=== PATIENT | male | born 1935 | race Caucasian/White ===

== ENCOUNTER 2017-05-26 13:58 | Inpatient (IN) | payer MEDICARE, BC ==
[~2017-05-26] VITALS: Ht 167.6 cm; Wt 94.1 kg
[2017-05-26] MEDS ORDERED: SODIUM CHLORIDE FLUSH 10ML SYR IVF ONE (15:00)
[2017-05-26 15:13] LABS: BASOPHILS # (AUTO) 0.02 x10^3/uL (0-0.1); BASOPHILS % (AUTO) 0 % (0-1); EOSINOPHILS # (AUTO) 0.01 x10^3/uL (0-0.4); EOSINOPHILS % (AUTO) 0 % (1-7); LYMPHOCYTES # (AUTO) 1.35 x10^3/uL (1-3.4); LYMPHOCYTES % (AUTO) 13 % (22-44); MD NO; MEAN CORPUSCULAR HEMOGLOBIN 27.8 pg (27.5-34.5); MEAN CORPUSCULAR HGB CONC 32.5 g/dL (33.2-36.2); MEAN CORPUSCULAR VOLUME 85.7 fL (81-97); MEAN PLATELET VOLUME 7.3 fL (7.4-10.4); MONOCYTES # (AUTO) 0.14 x10^3/uL (0.2-0.8); MONOCYTES % (AUTO) 1 % (2-9); NEUTROPHILS # (AUTO) 8.78 x10^3/uL (1.8-6.8); NEUTROPHILS % (AUTO) 85 % (42-75); PLATELET COUNT 234 x10^3/uL (130-400); RED BLOOD COUNT 4.66 x10^6/uL (4.38-5.82)
[2017-05-26 15:24] LABS: ALANINE AMINOTRANSFERASE 16 U/L (12-78); ALBUMIN 2.9 g/dL (3.4-5.0); ANION GAP 8 mmol/L (5-15); CALCIUM 8.5 mg/dL (8.5-10.1); CHLORIDE 100 mmol/L (98-107); CREATININE 1.83 mg/dL (0.7-1.3)
[2017-05-26 15:27] LABS: RAPID INFLUENZA A POSITIVE (Negative); RAPID INFLUENZA B Negative (Negative)
[2017-05-26 15:28] LABS: ALKALINE PHOSPHATASE 69 U/L (45-117); BILIRUBIN,TOTAL 0.5 mg/dL (0.2-1.0); TROPONIN I 0.031 ng/mL (0.000-0.045)
[2017-05-26] MEDS ORDERED: SODIUM CHLORIDE FLUSH 10ML SYR IVF PRN (21:30)
[2017-05-26] MEDS ORDERED: WARF5TAB7 PO (22:34)
[2017-05-26] MEDS ORDERED: FURO-93 PO (22:35)
[2017-05-26] MEDS ORDERED: METO50TA4 PO (22:36)
[2017-05-26] MEDS ORDERED: ATOR20TA9 PO (22:37)
[2017-05-26] MEDS ORDERED: LOSA25TA5 PO (22:37)
[2017-05-26] MEDS ORDERED: ALLO100T30 PO (22:38)
[2017-05-26] MEDS ORDERED: ASPI-496 PO (22:38)
[2017-05-26] MEDS ORDERED: ONDANSETRON 2MG/ML, 2ML IVPush PRN (23:00)
[2017-05-26] MEDS ORDERED: TEMAZEPAM 15 MG CAPSULE PO PRN (23:00)
[2017-05-26] MEDS ORDERED: ACETAMINOPHEN 325 MG TABLET PO PRN (23:00)
[2017-05-27] MEDS ORDERED: ALBUTEROL SULFATE 2.5 MG/3 ML NPPB PRN
[2017-05-27 00:55] VITALS: BP 110/62
[2017-05-27 04:23] LABS: BASOPHILS # (AUTO) 0.03 x10^3/uL (0-0.1); BASOPHILS % (AUTO) 0 % (0-1); EOSINOPHILS # (AUTO) 0.02 x10^3/uL (0-0.4); EOSINOPHILS % (AUTO) 0 % (1-7); LYMPHOCYTES # (AUTO) 2.41 x10^3/uL (1-3.4); LYMPHOCYTES % (AUTO) 24 % (22-44); MD NO; MEAN CORPUSCULAR HEMOGLOBIN 27.3 pg (27.5-34.5); MEAN CORPUSCULAR HGB CONC 32.1 g/dL (33.2-36.2); MEAN CORPUSCULAR VOLUME 85.3 fL (81-97); MEAN PLATELET VOLUME 6.9 fL (7.4-10.4); MONOCYTES # (AUTO) 0.64 x10^3/uL (0.2-0.8); MONOCYTES % (AUTO) 7 % (2-9); NEUTROPHILS # (AUTO) 6.82 x10^3/uL (1.8-6.8); NEUTROPHILS % (AUTO) 69 % (42-75); PLATELET COUNT 215 x10^3/uL (130-400); RED BLOOD COUNT 4.15 x10^6/uL (4.38-5.82); RED CELL DISTRIBUTION WIDTH 18.1 % (9.4-14.8)
[2017-05-27 04:30] LABS: INTERNATIONAL NORMALIZED RATIO 2.08 (0.93-1.1); PROTHROMBIN TIME 21.3 Seconds (9.6-11.5)
[2017-05-27 04:34] LABS: ANION GAP 6 mmol/L (5-15); CALCIUM 8.4 mg/dL (8.5-10.1); CHLORIDE 100 mmol/L (98-107)
[2017-05-27] MEDS: SODIUM CHLORIDE 0.9% 1,000 ML IV SCH ×3 (06:35→23:04)
[2017-05-27 07:05] VITALS: BP 128/70
[2017-05-27] MEDS: ALLOPURINOL 100 MG TABLET PO SCH (09:01)
[2017-05-27] MEDS: METOPROLOL SUCCINATE 50 MG TAB.ER.24H PO SCH (09:01)
[2017-05-27] MEDS: ASPIRIN 81 MG TABLET EC PO SCH (09:01)
[2017-05-27 13:15] VITALS: BP 127/69
[2017-05-27] MEDS: WARFARIN 5 MG TABLET PO-COUM SCH (18:15)
[2017-05-27 21:59] VITALS: BP 120/60
[2017-05-28 05:04] VITALS: BP 133/69
[2017-05-28] MEDS: SODIUM CHLORIDE 0.9% 1,000 ML IV SCH ×2 (06:00→18:00)
[2017-05-28 07:36] VITALS: BP 124/67
[2017-05-28] MEDS: METOPROLOL SUCCINATE 50 MG TAB.ER.24H PO SCH (09:03)
[2017-05-28] MEDS: ASPIRIN 81 MG TABLET EC PO SCH (09:03)
[2017-05-28] MEDS: ALLOPURINOL 100 MG TABLET PO SCH (09:03)
[2017-05-28 13:44] VITALS: BP 130/54
[2017-05-28 17:23] LABS: CLOSTRIDIUM DIFFICILE ANTIGEN NEGATIVE; CLOSTRIDIUM DIFFICILE TOXIN NEGATIVE (Negative)
[2017-05-28] MEDS: WARFARIN 5 MG TABLET PO-COUM SCH (17:39)
[2017-05-28 21:26] VITALS: BP 154/66
[2017-05-29] MEDS: SODIUM CHLORIDE 0.9% 1,000 ML IV SCH ×2 (02:00→09:29)
[2017-05-29 02:02] VITALS: BP 169/71
[2017-05-29] MEDS: GUAIFENESIN/DM 200-20MG, 10ML UDC PO PRN (05:43)
[2017-05-29 07:06] VITALS: BP 148/76
[2017-05-29] MEDS: ALLOPURINOL 100 MG TABLET PO SCH (09:29)
[2017-05-29] MEDS: METOPROLOL SUCCINATE 50 MG TAB.ER.24H PO SCH (09:29)
[2017-05-29] MEDS: ASPIRIN 81 MG TABLET EC PO SCH (09:29)
[2017-05-29] MEDS ORDERED: FUROSEMIDE 20 MG/2 ML IV ONE (10:30)
[2017-05-29 10:54] LABS: MEAN CORPUSCULAR HEMOGLOBIN 27.6 pg (27.5-34.5); MEAN CORPUSCULAR HGB CONC 32.1 g/dL (33.2-36.2); MEAN CORPUSCULAR VOLUME 85.8 fL (81-97); MEAN PLATELET VOLUME 6.9 fL (7.4-10.4); PLATELET COUNT 200 x10^3/uL (130-400); RED BLOOD COUNT 4.09 x10^6/uL (4.38-5.82); RED CELL DISTRIBUTION WIDTH 17.8 % (9.4-14.8)
[2017-05-29 10:58] LABS: INTERNATIONAL NORMALIZED RATIO 3.08 (0.93-1.1); PROTHROMBIN TIME 31.3 Seconds (9.6-11.5)
[2017-05-29 11:02] LABS: ANION GAP 5 mmol/L (5-15); CHLORIDE 110 mmol/L (98-107); CREATININE 1.16 mg/dL (0.7-1.3)
[2017-05-29 11:24] VITALS: BP 134/63
[2017-05-29] MEDS: LOSARTAN 25MG TABLET PO SCH (11:27)
[2017-05-29 12:57] VITALS: BP 151/75
[2017-05-29 13:03] LABS: BASOPHILS # (AUTO) 0.01 x10^3/uL (0-0.1); BASOPHILS % (AUTO) 0 % (0-1); EOSINOPHILS # (AUTO) 0.01 x10^3/uL (0-0.4); EOSINOPHILS % (AUTO) 0 % (1-7); LYMPHOCYTES # (AUTO) 2.35 x10^3/uL (1-3.4); LYMPHOCYTES % (AUTO) 23 % (22-44); MD SCAN; MONOCYTES % (AUTO) 5 % (2-9); NEUTROPHILS # (AUTO) 7.32 x10^3/uL (1.8-6.8); NEUTROPHILS % (AUTO) 72 % (42-75)
[2017-05-29] MEDS ORDERED: WARFARIN 2.5 MG TABLET PO-COUM SCH (18:00)
[2017-05-29 19:18] VITALS: BP 157/64
[2017-05-29] MEDS: GUAIFENESIN ER 600 MG TABLET PO SCH (20:12)
[2017-05-29] MEDS: FUROSEMIDE 20 MG TABLET PO SCH (20:12)
[2017-05-29] MEDS: GUAIFENESIN/COD200MG-20MG/10ML LIQUID PO SCH (20:13)
[2017-05-29] MEDS: ATORVASTATIN 20 MG TABLET PO SCH (20:13)
[2017-05-30 02:59] VITALS: BP 180/63
[2017-05-30 03:01] VITALS: BP 171/73
[2017-05-30 03:11] VITALS: BP 160/61
[2017-05-30 05:02] LABS: INTERNATIONAL NORMALIZED RATIO 3.43 (0.93-1.1); PROTHROMBIN TIME 34.8 Seconds (9.6-11.5)
[2017-05-30 05:04] LABS: BASOPHILS # (AUTO) 0.01 x10^3/uL (0-0.1); BASOPHILS % (AUTO) 0 % (0-1); EOSINOPHILS # (AUTO) 0.01 x10^3/uL (0-0.4); EOSINOPHILS % (AUTO) 0 % (1-7); LYMPHOCYTES % (AUTO) 19 % (22-44); MD NO; MEAN CORPUSCULAR HEMOGLOBIN 27.1 pg (27.5-34.5); MEAN CORPUSCULAR HGB CONC 31.5 g/dL (33.2-36.2); MEAN CORPUSCULAR VOLUME 85.9 fL (81-97); MEAN PLATELET VOLUME 7.9 fL (7.4-10.4); MONOCYTES # (AUTO) 0.51 x10^3/uL (0.2-0.8); MONOCYTES % (AUTO) 7 % (2-9); NEUTROPHILS # (AUTO) 5.61 x10^3/uL (1.8-6.8); NEUTROPHILS % (AUTO) 75 % (42-75); PLATELET COUNT 196 x10^3/uL (130-400); RED BLOOD COUNT 3.96 x10^6/uL (4.38-5.82); RED CELL DISTRIBUTION WIDTH 17.9 % (9.4-14.8)
[2017-05-30 05:09] LABS: ANION GAP 6 mmol/L (5-15); CALCIUM 7.9 mg/dL (8.5-10.1); CHLORIDE 110 mmol/L (98-107)
[2017-05-30 07:00] VITALS: BP 152/65
[2017-05-30] MEDS: ALLOPURINOL 100 MG TABLET PO SCH (08:28)
[2017-05-30] MEDS: METOPROLOL SUCCINATE 50 MG TAB.ER.24H PO SCH (08:28)
[2017-05-30] MEDS: FUROSEMIDE 20 MG TABLET PO SCH (08:29)
[2017-05-30] MEDS: GUAIFENESIN ER 600 MG TABLET PO SCH ×2 (08:29→21:07)
[2017-05-30] MEDS: ASPIRIN 81 MG TABLET EC PO SCH (08:29)
[2017-05-30] MEDS: LOSARTAN 25MG TABLET PO SCH ×2 (08:34→21:08)
[2017-05-30 12:47] VITALS: BP 162/73
[2017-05-30] MEDS ORDERED: hydrALAzine 20 MG/ML, 1ML IV PRN (15:30)
[2017-05-30] MEDS ORDERED: FUROSEMIDE 20 MG/2 ML IV ONE (15:30)
[2017-05-30] MEDS ORDERED: WARFARIN 1 MG TABLET PO-COUM SCH (18:00)
[2017-05-30] MEDS: ATORVASTATIN 20 MG TABLET PO SCH (21:06)
[2017-05-30] MEDS: GUAIFENESIN/COD200MG-20MG/10ML LIQUID PO SCH (21:08)
[2017-05-30] MEDS: GUAIFENESIN/DM 200-20MG, 10ML UDC PO PRN (21:08)
[2017-05-30 21:14] VITALS: BP 148/86
[2017-05-31 03:28] VITALS: BP 180/61
[2017-05-31 03:29] VITALS: BP 183/76
[2017-05-31 03:43] VITALS: BP 164/89
[2017-05-31 04:50] LABS: ANION GAP 5 mmol/L (5-15); CALCIUM 7.9 mg/dL (8.5-10.1); CHLORIDE 108 mmol/L (98-107)
[2017-05-31 04:51] LABS: CREATININE 1.09 mg/dL (0.7-1.3)
[2017-05-31 05:03] LABS: INTERNATIONAL NORMALIZED RATIO 5.32 (0.93-1.1); PROTHROMBIN TIME 53.5 Seconds (9.6-11.5)
[2017-05-31 08:00] VITALS: BP 151/69
[2017-05-31] MEDS: FUROSEMIDE 20 MG TABLET PO SCH ×2 (08:13→19:14)
[2017-05-31] MEDS: GUAIFENESIN ER 600 MG TABLET PO SCH ×2 (08:13→22:15)
[2017-05-31] MEDS: ALLOPURINOL 100 MG TABLET PO SCH (08:13)
[2017-05-31] MEDS: METOPROLOL SUCCINATE 50 MG TAB.ER.24H PO SCH (08:13)
[2017-05-31] MEDS: LOSARTAN 25MG TABLET PO SCH ×2 (08:13→22:15)
[2017-05-31] MEDS: ASPIRIN 81 MG TABLET EC PO SCH (08:13)
[2017-05-31 13:51] VITALS: BP 127/60
[2017-05-31 18:30] VITALS: BP 154/74
[2017-05-31] MEDS: ATORVASTATIN 20 MG TABLET PO SCH (22:15)
[2017-05-31] MEDS: GUAIFENESIN/COD200MG-20MG/10ML LIQUID PO SCH (22:15)
[2017-06-01 01:41] VITALS: BP 161/65
[2017-06-01 04:58] LABS: INTERNATIONAL NORMALIZED RATIO 3.58 (0.93-1.1); PROTHROMBIN TIME 36.3 Seconds (9.6-11.5)
[2017-06-01 07:00] VITALS: BP 169/66
[2017-06-01] MEDS: ASPIRIN 81 MG TABLET EC PO SCH (08:12)
[2017-06-01] MEDS: ALLOPURINOL 100 MG TABLET PO SCH (08:12)
[2017-06-01] MEDS: LOSARTAN 25MG TABLET PO SCH ×2 (08:12→20:20)
[2017-06-01] MEDS: METOPROLOL SUCCINATE 50 MG TAB.ER.24H PO SCH (08:12)
[2017-06-01] MEDS: GUAIFENESIN ER 600 MG TABLET PO SCH ×2 (08:12→20:20)
[2017-06-01] MEDS: FUROSEMIDE 20 MG TABLET PO SCH ×2 (08:12→17:27)
[2017-06-01 13:03] VITALS: BP 154/76
[2017-06-01] MEDS ORDERED: WARFARIN 1 MG TABLET PO-COUM ONE (18:00)
[2017-06-01 20:16] VITALS: BP 144/58
[2017-06-01] MEDS: ATORVASTATIN 20 MG TABLET PO SCH (20:20)
[2017-06-01] MEDS: GUAIFENESIN/COD200MG-20MG/10ML LIQUID PO SCH (20:20)
[2017-06-02 02:32] VITALS: BP 153/66
[2017-06-02 04:52] LABS: INTERNATIONAL NORMALIZED RATIO 3.26 (0.93-1.1); PROTHROMBIN TIME 33.1 Seconds (9.6-11.5)
[2017-06-02 07:43] VITALS: BP 158/66
[2017-06-02] MEDS: GUAIFENESIN ER 600 MG TABLET PO SCH (10:09)
[2017-06-02] MEDS: ALLOPURINOL 100 MG TABLET PO SCH (10:09)
[2017-06-02] MEDS: ASPIRIN 81 MG TABLET EC PO SCH (10:09)
[2017-06-02] MEDS: METOPROLOL SUCCINATE 50 MG TAB.ER.24H PO SCH (10:09)
[2017-06-02] MEDS: LOSARTAN 25MG TABLET PO SCH (10:10)
[2017-06-02] MEDS: FUROSEMIDE 20 MG TABLET PO SCH (10:10)
[2017-06-02] MEDS ORDERED: LOSA25TA2 PO (12:30)
[2017-06-02] MEDS ORDERED: PRED5TAB PO (12:30)
[2017-06-02 13:07] VITALS: BP 150/72
[2017-06-02] MEDS ORDERED: WARFARIN 1 MG TABLET PO-COUM ONE (18:00)
== END 2017-06-02 14:00 | disposition home or self-care (01) | DRG 682 ==
LOC: ED 18:20 → EDIP 21:04 → 3NW 05-27
PROVIDERS: ADMIT Internal Medicine; ATTEND Internal Medicine
PROC: 5A09557 Assistance with Respiratory Ventilation, Greater than 96 Consecutive Hours, Continuous Positive Airway Pressure (ICD-10-PCS; principal; 2017-05-28)
PROC: 5A09557 Assistance with Respiratory Ventilation, Greater than 96 Consecutive Hours, Continuous Positive Airway Pressure (ICD-10-PCS; 2017-05-29)
PROC: 5A09557 Assistance with Respiratory Ventilation, Greater than 96 Consecutive Hours, Continuous Positive Airway Pressure (ICD-10-PCS; 2017-06-01)
DX: N17.0 Acute kidney failure with tubular necrosis (principal); J96.21 Acute and chronic respiratory failure with hypoxia; E44.0 Moderate protein-calorie malnutrition; I50.33 Acute on chronic diastolic (congestive) heart failure; I50.43 Acute on chronic combined systolic (congestive) and diastolic (congestive) heart failure; J44.1 Chronic obstructive pulmonary disease with (acute) exacerbation; I13.0 Hypertensive heart and chronic kidney disease with heart failure and stage 1 through stage 4 chronic kidney disease, or unspecified chronic kidney disease; J84.10 Pulmonary fibrosis, unspecified; J10.1 Influenza due to other identified influenza virus with other respiratory manifestations; N18.9 Chronic kidney disease, unspecified; G47.33 Obstructive sleep apnea (adult) (pediatric); E78.5 Hyperlipidemia, unspecified; M10.9 Gout, unspecified; I08.0 Rheumatic disorders of both mitral and aortic valves; Z68.33 Body mass index [BMI] 33.0-33.9, adult; Z95.2 Presence of prosthetic heart valve; Z87.891 Personal history of nicotine dependence; Z79.01 Long term (current) use of anticoagulants
CPT/HCPCS: 36415; 71046; 80048; 80053; 83735; 83880; 84484; 85025; 85610; 87324; 87400; 93005; 93306; 94640; 94660; 99285; J7613; J1940; J7030; J7512